=== PATIENT | female | born 1940 | race Two or more races ===

== ENCOUNTER 2018-04-26 11:41 | Emergency (ER) | payer OTHER ==
[~2018-04-26] VITALS: Ht 152.4 cm; Wt 59.0 kg
[2018-04-26] MEDS ORDERED: NAPR500T14 (12:39)
[2018-04-26] MEDS ORDERED: INLYTA5 MG (12:39)
[2018-04-26] MEDS ORDERED: ZANTAC300 MG (12:40)
[2018-04-26] MEDS ORDERED: DIOVAN160 M1 (12:40)
[2018-04-26] MEDS ORDERED: ASPIR 8181 MG (12:42)
[2018-04-26] MEDS ORDERED: ALLERGY10 M1 (12:42)
[2018-04-26] MEDS ORDERED: SENNA-TIME S T1 EACH (12:42)
== END 2018-04-27 13:25 | disposition designated cancer center or children's hospital (05) ==
LOC: ER 11:41
DX: G95.29 Other cord compression (principal); M48.54XA Collapsed vertebra, not elsewhere classified, thoracic region, initial encounter for fracture; M51.37 Other intervertebral disc degeneration, lumbosacral region; G82.22 Paraplegia, incomplete; Z85.53 Personal history of malignant neoplasm of renal pelvis; Z85.118 Personal history of other malignant neoplasm of bronchus and lung
CPT/HCPCS: 72148; 72157